=== PATIENT | female | born 1975 | race African-American/Black ===

== ENCOUNTER 2018-06-16 10:39 | Day surgery (SDC) | payer BC ==
[2018-06-16] MEDS ORDERED: DOXYCYCLINE HYCLATE 100 MG in DEXTROSE 5%-WATER 250 ML IV PRN (11:01)
[2018-06-16 11:44] LABS: HEMATOCRIT 29.2 % (36.0-47.0); MEAN CORPUSCULAR HEMOGLOBIN 28.6 pg (27.0-33.4); MEAN CORPUSCULAR HGB CONC 34.2 g/dL (32.0-36.0); MEAN CORPUSCULAR VOLUME 84 fl (80-97); PLATELET COUNT 274 10^3/uL (150-450); RED BLOOD COUNT 3.49 10^6/uL (3.72-5.28); RED CELL DISTRIBUTION WIDTH 13.5 % (11.5-14.0); WHITE BLOOD COUNT 5.9 10^3/uL (4.0-10.5)
[2018-06-16 11:57] LABS: APPEARANCE,URINE SLIGHTLY-CLOUDY; BILIRUBIN,URINE NEGATIVE (NEGATIVE); COLOR,URINE YELLOW; GLUCOSE, URINE NEGATIVE (NEGATIVE); KETONES,URINE NEGATIVE (NEGATIVE); LEUKOCYTE ESTERASE,URINE TRACE (NEGATIVE); NITRITE,URINE NEGATIVE (NEGATIVE); PROTEIN,URINE NEGATIVE (NEGATIVE); URINE SPECIFIC GRAVITY 1.026; UROBILINOGEN,URINE NEGATIVE mg/dL (<2.0)
[2018-06-16] MEDS ORDERED: SCOPOLAMINE HYDROBROMIDE 1.5 MG PATCH.TD72 ONE (12:20)
[2018-06-16] MEDS ORDERED: MIDAZOLAM 2 MG/2 ML INJ ONE ×2 (12:20→14:03)
[2018-06-16] MEDS ORDERED: FAMOTIDINE INJ/PF 20 MG/2 ML SDV IV ONE (12:20)
[2018-06-16] MEDS ORDERED: METOCLOPRAMIDE HCL INJ/PF 10 MG/2 ML SDV ONE (12:22)
[2018-06-16] MEDS ORDERED: METOCLOPRAMIDE HCL INJ/PF 10 MG/2 ML SDV IV ONE (12:30)
[2018-06-16] MEDS ORDERED: FENTANYL CITRATE INJ/PF 100 MCG/2 ML AMPUL ONE ×2 (14:03→15:20)
[2018-06-16] MEDS ORDERED: PROPOFOL INJ 200 MG/20 ML VIAL IV ONE (14:04)
--- NOTE | 2018-06-16 14:19 | RADIOLOGY REPORT (SQ) ---
EXAM DESCRIPTION: U/S NON-OB PELVIS W/O DOP COMPLETED DATE/TIME: 06/16/2018 2:09 pm REASON FOR STUDY: EVAL FOR RPOC O02.1 MISSED COMPARISON: None. TECHNIQUE: Dynamic and static grayscale images acquired of the pelvis via transabdominal approach an d recorded on PACS. Additional selected color Doppler and spectral images recorded. LIMITATIONS: None. FINDINGS: UTERUS: Contour normal. No mass. ENDOMETRIAL STRIPE: Trace of fluid in the endometrial cavity. CERVIX: No nabothian cysts. RIGHT OVARY AND DOPPLER: Ovary not visualized. LEFT OVARY AND DOPPLER: Ovary not visualized. FREE FLUID: None noted. OTHER: No other significant finding. MEASUREMENTS: UTERUS: 12.9 x 8.0 x 7.0 cm ENDOMETRIAL STRIPE: 17 mm RIGHT OVARY: Not visualized. LEFT OVARY: Not visualized. IMPRESSION: No evidence of retained products. TECHNICAL DOCUMENTATION: JOB ID: [id number] [employer]- All Rights Reserved Rev-02/06 Reading location - IP/workstation name: [email or web address]
[2018-06-16] MEDS ORDERED: OXYCODONE-ACETAMINOPHEN 5-325 MG TABLET PO PRN ×4 (14:25→15:12)
[2018-06-16] MEDS ORDERED: MEPERIDINE HCL/PF INJ 25 MG/1 ML DISP.SYRIN IV PRN (14:25)
[2018-06-16] MEDS ORDERED: MORPHINE SULFATE 10 MG/ML INJ IV PRN (14:25)
[2018-06-16] MEDS ORDERED: PROMETHAZINE HCL INJ 25 MG/1 ML VIAL IV PRN ×2 (14:25)
[2018-06-16] MEDS ORDERED: DIPHENHYDRAMINE HCL 50 MG/ML VIAL IV PRN (14:25)
[2018-06-16] MEDS ORDERED: FENTANYL CITRATE INJ/PF 100 MCG/2 ML AMPUL IV PRN ×3 (14:25)
[2018-06-16] MEDS ORDERED: KETOROLAC TROMETHAMINE INJ/PF 30 MG/1 ML SDV ONE (15:06)
[2018-06-16] MEDS ORDERED: IBUPROFEN 800 MG TABLET PO PRN (15:12)
[2018-06-16] MEDS ORDERED: MORPHINE SULFATE 10 MG/ML INJ IM ONE (16:30)
--- NOTE | 2018-06-16 16:55 | OPERATIVE REPORT E ---
Operative Report NAME: JONATHAN ALEXANDRE : 1975 AGE: 42Y DATE OF SURGERY: 06/16/2018 ROOM: PREOPERATIVE DIAGNOSIS: INCOMPLETE . POSTOPERATIVE DIAGNOSIS: INCOMPLETE . OPERATION: Dilation and curettage. SURGEON: SCOOBY HUGHES M.D. ANESTHESIA: Dr. Billingsley with LMAC. COMPLICATIONS: None. ESTIMATED BLOOD LOSS: 50 mL TISSUE REMOVED OR ALTERED: Products of conception. PROCEDURE: The patient was taken to the operating room, prepared and draped in normal sterile fashion in dorsal lithotomy position. Under sterile conditions, in and out cath was performed of approximately 150 mL of clear urine. A sterile speculum was placed in the vagina. The cervix was grasped on the anterior lip with a single-tooth tenaculum. The cervix was found to have minimal amounts of decidual appearing tissue extruding from the os, and this was removed with pickups. The cervix was then dilated to accommodate a small Kevorkian curette which was introduced without difficulty, and the endometrial cavity was carefully curettaged. This was repeated several times until I felt 360 degrees of grit all the way around. I introduced a tissue grasper through the cervical os as well, and continued to remove endometrial tissue until decidual tissue was no longer apparent and bleeding was extremely minimal. The single-tooth tenaculum was removed and the cervix was inspected for bleeding and found to be closing adequately, as well as showing a hemostatic effect with minimal bleeding noted at the end of the procedure. Instruments were removed. Sponge, lap, and needle counts were correct x2. The patient was taken to recovery in stable condition. DICTATING PHYSICIAN: SCOOBY HUGHES M.D. [id number] PHY#: [id number] ID: [id number] JOB#: [id number] ACCT: [id number] cc:SCOOBY HUGHES M.D. >
[2018-06-16 17:02] VITALS: BP 112/75
== END 2018-06-16 16:55 | disposition home or self-care (01) ==
LOC: OROUT 10:39
PROVIDERS: ATTEND Obstetrics & Gynecology
DX: O02.1 Missed abortion (principal)
CPT/HCPCS: 86900; 86901; 36415; 84703; 85027; 81001; 88305 ×2; 76856; 59820; J2250; J3490; J3010; J1885; J2765; J7060; J2704; S0028; 1965